=== PATIENT | female | born 1980 | race Caucasian/White ===

== ENCOUNTER 2019-03-03 01:22 | Emergency (ER) | payer OTHER ==
[~2019-03-03] VITALS: Ht 162.6 cm; Wt 70.3 kg
[2019-03-03 01:42] VITALS: BP 146/94
--- NOTE | 2019-03-03 01:47 | NUR ---
ED Nurse Note: Walk-in patient presents wit complaints of rigt lower abdominal pain, sharp. Patient rendering urine sample at this time.
--- NOTE | 2019-03-03 02:05 | Emergency Room Report ---
History of Present Illness General Chief Complaint: Abdominal Pain Source: Patient Present Illness HPI Disclaimer: Please note that this report is being documented using DRAGON technology. This can lead to erroneous entry secondary to incorrect interpretation by the dictating instrument. HPI: This a 39-year-old female presenting for evaluation of abdominal pain. Symptoms began yesterday afternoon. She reports sharp stabbing right lower quadrant pain that does not radiate. She also started having some pain on the left side and intermittent nausea but denies vomiting, diarrhea, dysuria, hematuria or fevers. She has had intermittent vaginal spotting since her and tubal ligation 3 months ago. Denies vaginal discharge. No other abdominal surgeries. Took no medication prior to arrival. States the pain is gradually getting worse. No history of fibroids or ovarian cyst that the patient is aware of PMH: Denies PSH: section x2, tubal ligation Allergies: Denies Social Hx: [place] Allergies: Coded Allergies: No Known Allergies (Unverified , 03/03/19) Patient History Last Menstrual Period: 03/01/19 Now: No Nursing Documentation-PMH Past Medical History: No Stated History Review of Systems All Other Systems: negative except mentioned in HPI Physical Exam Vital Signs Date Time Temp Pulse Resp B/P (MAP) Pulse Ox O2 Delivery O2 Flow Rate FiO2 03/03/19 01:42 98.6 78 16 146/94 (111) 96 Room Air General: Awake and alert, no acute distress HEENT: NC/AT. EOMI. Cardiovascular: RRR. S1 and S2 normal. No murmur appreciated Resp: Normal work of breathing. No cough, wheezing or crackles appreciated Abdomen: Abdomen is soft, nondistended. Tenderness in the right lower quadrant without rebound. No masses. Negative for Rovsing sign. Negative for obturator sign. Negative for psoas sign. Skin: Intact. No abrasions, laceration or rash over the exposed skin MSK: Normal tone and bulk. Moving all extremities. No obvious deformity. Neuro: Awake and alert. Mentating appropriately. Medical Decision Making Diagnostic Impression: Primary Impression: Ovarian cyst Additional Impressions: Microscopic hematuria Abdominal pain ER Course 39-year-old female presents for evaluation of right lower quadrant pain beginning yesterday afternoon. Differential includes was not limited to ovarian cyst, fibroids, ovarian torsion, appendicitis, bowel obstruction, enteritis, nephrolithiasis, urinary tract infection. We will start broad metabolic and infectious work-up as well as an ultrasound of the ovaries. Can advance imaging as needed. Laboratory Tests Test 03/03/19 02:10 White Blood Count 7.2 K/UL (4.8-10.8) Red Blood Count 4.89 M/UL (4.20-5.40) Hemoglobin 14.3 G/DL (12.0-16.0) Hematocrit 41.7 % (37.0-47.0) Mean Corpuscular Volume 85 FL (80-99) Mean Corpuscular Hemoglobin 29.2 PG (27.0-31.0) Mean Corpuscular Hemoglobin Concent 34.3 G/DL (32.0-36.0) Red Cell Distribution Width 11.4 % (11.6-14.8) L Platelet Count 191 K/UL (150-450) Mean Platelet Volume 6.8 FL (6.5-10.1) Neutrophils (%) (Auto) 53.7 % (45.0-75.0) Lymphocytes (%) (Auto) 35.2 % (20.0-45.0) Monocytes (%) (Auto) 6.9 % (1.0-10.0) Eosinophils (%) (Auto) 3.4 % (0.0-3.0) H Basophils (%) (Auto) 0.7 % (0.0-2.0) Urine Color Pale yellow Urine Appearance Clear Urine pH 6.5 (4.5-8.0) Urine Specific Bennett 1.015 (1.005-1.035) Urine Protein Negative (NEGATIVE) Urine Glucose (UA) Negative (NEGATIVE) Urine Ketones 3+ (NEGATIVE) H Urine Blood 4+ (NEGATIVE) H Urine Nitrite Negative (NEGATIVE) Urine Bilirubin Negative (NEGATIVE) Urine Urobilinogen Normal MG/DL (0.0-1.0) Urine Leukocyte Esterase 1+ (NEGATIVE) H Urine RBC 10-15 /HPF (0 - 2) H Urine WBC 2-4 /HPF (0 - 2) Urine Squamous Epithelial Cells Few /LPF (NONE/OCC) Urine Bacteria Few /HPF (NONE) Urine HCG, Qualitative Negative (NEGATIVE) Sodium Level 143 MMOL/L (136-145) Potassium Level 3.8 MMOL/L (3.5-5.1) Chloride Level 107 MMOL/L (98-107) Carbon Dioxide Level 27 MMOL/L (21-32) Anion Gap 10 mmol/L (5-15) Blood Urea Nitrogen 13 mg/dL (7-18) Creatinine 0.8 MG/DL (0.55-1.30) Estimate Glomerular Filtration Rate > 60 mL/min (>60) Glucose Level 107 MG/DL (74-106) H Calcium Level 9.8 MG/DL (8.5-10.1) Total Bilirubin 0.7 MG/DL (0.2-1.0) Aspartate Amino Transferase (AST) 14 U/L (15-37) L Alanine Aminotransferase (ALT) 26 U/L (12-78) Alkaline Phosphatase 108 U/L (46-116) Total Protein 7.3 G/DL (6.4-8.2) Albumin 3.8 G/DL (3.4-5.0) Globulin 3.5 g/dL Albumin/Globulin Ratio 1.1 (1.0-2.7) Lipase 170 U/L (73-393) Reevaluation Time: 03:46 Last Vital Signs Date Time Temp Pulse Resp B/P (MAP) Pulse Ox O2 Delivery O2 Flow Rate FiO2 03/03/19 01:42 98.6 78 16 146/94 (111) 96 Room Air Reevaluation Impression Labs have returned largely within normal limits aside from microscopic hematuria. No significant white count, no anemia and no signs of urinary tract infection. An ovarian cyst on the right side which may be the cause of the patient's pain however we cannot completely exclude appendicitis or other pathology such as nephrolithiasis. At this time, the patient is feeling much improved after receiving fluids and Toradol. She is elected to try symptomatic treatment of ovarian cyst as an outpatient as opposed to obtaining a CT scan at this time. I believe this is appropriate and she is overall well-appearing does not have the clinical picture of appendicitis or nephrolithiasis. We discussed that should her symptoms return she should return to the emergency department for reevaluation and CT scan. Otherwise, she can follow-up with OB/ PASTR[facility]ER and PMD. She agrees to the treatment plan will be discharged home. Disposition: HOME, SELF-CARE Condition: Improved Referrals: NOT CHOSEN IPA/,REFERRING (PCP) Cuong Cervantes MD Mar 03, 2019 02:05
[2019-03-03] MEDS ORDERED: Ketorolac 30mg Inj IV ONE (02:15)
[2019-03-03 02:28] LABS: APPEARANCE,URINE CLEAR; BASOPHILS % (AUTO) 0.7 % (0.0-2.0); BILIRUBIN, URINE NEGATIVE (NEGATIVE); COLOR,URINE PALE YELLOW; EOSINOPHILS % (AUTO) 3.4 % (0.0-3.0); GLUCOSE, URINE (UA) NEGATIVE (NEGATIVE); HEMATOCRIT 41.7 % (37.0-47.0); HEMOGLOBIN 14.3 G/DL (12.0-16.0); KETONES,URINE 3+ (NEGATIVE); LEUKOCYTE ESTERASE ,URINE 1+ (NEGATIVE); LYMPHOCYTES % (AUTO) 35.2 % (20.0-45.0); MEAN CORPUSCULAR VOLUME 85 FL (80-99); MONOCYTES % (AUTO) 6.9 % (1.0-10.0); NEUTROPHILS % (AUTO) 53.7 % (45.0-75.0); NITRITE,URINE NEGATIVE (NEGATIVE); PH,URINE 6.5 (4.5-8.0); PLATELET COUNT 191 K/UL (150-450); PROTEIN,URINE NEGATIVE (NEGATIVE); RED BLOOD COUNT 4.89 M/UL (4.20-5.40); RED CELL DISTRIBUTION WIDTH 11.4 % (11.6-14.8); UROBILINOGEN,URINE NORMAL MG/DL (0.0-1.0); WHITE BLOOD COUNT 7.2 K/UL (4.8-10.8)
--- NOTE | 2019-03-03 02:47 | NUR ---
ED Nurse Note: Patient went over for ultrasound.
[2019-03-03 02:48] LABS: ANION GAP 10 mmol/L (5-15); BLOOD UREA NITROGEN 13 mg/dL (7-18); CALCIUM 9.8 MG/DL (8.5-10.1); CARBON DIOXIDE 27 MMOL/L (21-32); CHLORIDE 107 MMOL/L (98-107); CREATININE 0.8 MG/DL (0.55-1.30); POTASSIUM 3.8 MMOL/L (3.5-5.1); SODIUM 143 MMOL/L (136-145)
[2019-03-03 02:58] LABS: ALANINE AMINOTRANSFERASE 26 U/L (12-78); ALBUMIN 3.8 G/DL (3.4-5.0); ALBUMIN/GLOBULIN RATIO 1.1 (1.0-2.7); ALKALINE PHOSPHATASE 108 U/L (46-116); ASPARTATE AMINO TRANSFERASE 14 U/L (15-37); BILIRUBIN,TOTAL 0.7 MG/DL (0.2-1.0)
--- NOTE | 2019-03-03 03:32 | NUR ---
ED Nurse Note: Patient returned from Ultrasound.
[2019-03-03 03:48] VITALS: BP 146/94
--- NOTE | 2019-03-03 03:50 | NUR ---
ED Nurse Note: Patient cleared for discharge, verbalized understanding of discharge instructions, ID band removed, IV removed. Patient has no report of pain, is a&Ox4, ambulatory with steady gait. Patient departed with all belongings
--- NOTE | 2019-03-03 05:01 | Diagnostic Imaging Report ---
EXAM: US Pelvis Transabdominal, Complete CLINICAL HISTORY: ABD PAIN TECHNIQUE: Real-time complete transabdominal pelvic ultrasound with image documentation. COMPARISON: No relevant prior studies available. FINDINGS: Uterus cervix: Uterus measures 8.4 x 3.5 x 4.5 cm. Endometrial stripe measures 7 mm. Small nabothian cysts in the cervix. No myometrial mass. Right ovary: Right ovary measures 3 x 1.7 x 3.1 cm. Small cystic lesion in the right adnexa measuring approximately 1.3 x 0.9 x 1.2 cm, likely dominant follicle. Normal blood flow and spectral tracing. Left ovary: Left ovary measures 2 x 2 0.7 x 2.6 cm. Color flow noted. Spectral tracing limited due to patient's inability to fully tolerate exam. Free fluid: No free fluid. Bladder: Unremarkable as visualized. Wall is normal thickness for degree of distention. IMPRESSION: Pelvic sonogram, within normal limits. Limited spectral tracing evaluation of the left ovary, otherwise unremarkable. Consider short-term follow-up for further evaluation as indicated
== END 2019-03-03 03:52 | disposition home or self-care (01) ==
LOC: EMR 02:00
DX: N83.201 Unspecified ovarian cyst, right side (principal); R31.9 Hematuria, unspecified; R10.9 Unspecified abdominal pain
CPT/HCPCS: 36415; 76830; 76856; 80053; 81003; 81025; 83690; 85025; 96361; 96374; 96375; 99284; J1885; J2405; J7030